=== PATIENT | female | born 1955 | race Caucasian/White ===

== ENCOUNTER 2017-01-12 18:59 | Emergency (ER) | payer OTHER ==
--- NOTE | ~2017-01-12 | CR126 ---
[facility] A Service of [facility] RADIOLOGY TEXT RESULTS PATIENT: LUIS CARLOS NICHOLS LOCATION: [facility] : 57 UNIT #: [id number] AGE: [address]: VÍCTOR LUGO APRN SEX: F ORDER DR: [id number] [facility]. [place], [place] [address] [id number] MR#: [id number] #: [id number] NAME: LUIS CARLOS NICHOLS : 1955 SEX: F STUDY DATE/TIME: 01/12/2017 19:47 UNIT: [facility] ROOM: STUDY DESCRIPTION: CR Foot Complete Min 3 View Lt Attending Physician: Víctor Lugo Aprn Ordering Physician: Víctor Lugo Aprn Primary Care Physician: Primary Care Physician No MEDICAL IMAGING REPORT This report is preliminary unless electronic signature is present EXAM Left foot, 3 views HISTORY Plantar and dorsal foot pain for 2 days. No injury. Swelling. FINDINGS Three views of the left foot demonstrate satisfactory bone alignment. No fracture, or dislocation. Mild soft tissue swelling over the dorsum of the forefoot. Heterogeneous soft tissue calcification along the plantar margin of the foot at the level of the second MTP joint, extending over a diameter of nearly 3 cm. This could be dystrophic calcification. Correlation to the patient's symptoms in this region is recommended. IMPRESSION 1. No fracture. 2. Heterogeneous soft tissue calcification along the plantar margin of the foot at the level of the second MTP joint. This could be secondary to dystrophic calcification. 3. No acute findings in the remainder of the foot. Dictated by... Tray Toure M.D. THIS IS AN ELECTRONICALLY VERIFIED REPORT Tray Toure M.D. at 01/13/2017 3:18 PM DFL/psc TD: 01/12/2017 22:58 JOB #: [id number] [facility] A Service of [facility] RADIOLOGY TEXT RESULTS PATIENT: LUIS CARLOS NICHOLS LOCATION: [facility] : 57 UNIT #: [id number] AGE: [address]: VÍCTOR LUGO APRN SEX: F ORDER DR: MEDICAL IMAGING REPORT Page 1 of 1 COPY
[~2017-01-12 18:59] MED LIST: ACETAMINOPHEN PO; AL-MAG HYDROX-S30 M1 PO; ALBUTEROL17 GM INH; ASPIRIN81 M2 PO; CYMBALTA PO; DOXEPIN HCL100 MG PO; LASIX20 MG PO; LATUDA80 MG PO; MILK OF MAGNESIA PO; NEURONTIN600 MG PO; NORCO 10-325 TA1 TAB PO; PRAVASTATIN SOD20 MG PO; PROTONIX PO; SPIRIVA18 MCG INH; SYMBICORT80 INH; ZANAFLEX4 M1 PO
== END 2017-01-12 21:15 | disposition home or self-care (01) ==
LOC: CED 18:59 → CFTX 18:59
DX: M79.89 Other specified soft tissue disorders (principal); I10 Essential (primary) hypertension; J44.9 Chronic obstructive pulmonary disease, unspecified; F17.200 Nicotine dependence, unspecified, uncomplicated; K21.9 Gastro-esophageal reflux disease without esophagitis; Z79.899 Other long term (current) drug therapy
CPT/HCPCS: 73630; 99282